=== PATIENT | male | born 1995 | race Caucasian/White ===

== ENCOUNTER 2017-04-05 18:05 | Emergency (ER) | payer OTHER ==
[~2017-04-05] VITALS: Ht 167.6 cm; Wt 88.0 kg
[2017-04-05 18:14] VITALS: BP 137/79; PULSE 60; RESP 16; TEMP 98; O2SAT 100
[2017-04-05] MEDS ORDERED: IBUP800T23 PO (18:27)
--- NOTE | 2017-04-05 18:33 | PD ---
HPI Chief Complaint: Pain: Acute or Chronic Time Seen by Provider: 18:27 Travel History International Travel<30 days: No Contact w/Intl Traveler<30days: No Traveled to known affect area: No History of Present Illness HPI 22-year-old male presents the emergency department with 3 day history of anterior right shoulder discomfort. Patient denies any specific injury, but feels may be due to throwing a football, doing pushups, and playing Carnival games requiring throwing. He denies numbness, tingling, or weakness. Patient has not tried taking any for is worried about a rotator cuff tear. He states the pain is worse with certain movements, and is more aggravating then significantly painful. Positive drive with his hands up on the wheel. He describes the pain as a 4 out of 10. Patient has no known drug allergies. PFSH Past Medical History Integumentary: Yes (Psoriasis ) Tetanus Vaccination: < 5 Years Influenza Vaccination: No Social History Alcohol Use: Yes (Social/occ.) Tobacco Use: No Substance Use: No Allergies-Medications (Allergen,Severity, Reaction): Coded Allergies: No Known Allergies (Unverified , 04/05/17) Reported Meds & Prescriptions Reported Meds & Active Scripts Active Ibuprofen 800 Mg Tab 800 Mg PO Q8H PRN Review of Systems Except as stated in HPI: all other systems reviewed are Neg General / Constitutional: No: Fever Eyes: No: Visual changes HENT: No: Headaches Cardiovascular: No: Chest Pain or Discomfort Respiratory: No: Shortness of Breath Gastrointestinal: No: Abdominal Pain Genitourinary: No: Dysuria Musculoskeletal: No: Pain Skin: No Rash Neurologic: No: Weakness Psychiatric: No: Depression Endocrine: No: Polydipsia Hematologic/Lymphatic: No: Easy Bruising Physical Exam Narrative GENERAL: Patient appears no acute distress. SKIN: Warm and dry. Normal color. Normal turgor. HEAD: Atraumatic. Normocephalic. EYES: Pupils equal and round. No scleral icterus. No injection or drainage. ENT: No nasal bleeding or discharge. Mucous membranes pink and moist. NECK: Trachea midline. No JVD. CARDIOVASCULAR: Regular rate and rhythm. RESPIRATORY: No accessory muscle use. Clear to auscultation. Breath sounds equal bilaterally. MUSCULOSKELETAL: Extremities without clubbing, cyanosis, or edema. No obvious deformities. Patient is mild to moderate tenderness in the anterior deltoid region. Range of motion is full in the right shoulder without specific weakness. He has no tenderness to the cervical spine or trapezius region. NEUROLOGICAL: Awake and alert. No obvious cranial nerve deficits. Motor grossly within normal limits. Five out of 5 muscle strength in the arms and legs. Normal speech. PSYCHIATRIC: Appropriate mood and affect; insight and judgment normal. Data Data Last Documented VS Vital Signs Date Time Temp Pulse Resp B/P Pulse Ox O2 Delivery O2 Flow Rate FiO2 04/05/17 18:14 98.0 60 16 137/79 100 MDM Medical Decision Making Medical Screen Exam Complete: Yes Emergency Medical Condition: Yes Differential Diagnosis Right shoulder pain. Rotator cuff tendinitis. Biceps tendinitis. Narrative Course Patient is medically stable at time of exam. Radiographic imaging is not felt warranted at this time. Patient will take ibuprofen 800 mg 3 times daily with food 10 days. Patient is to use heat and ice and gentle stretching, refrain from heavy use of the right shoulder for the next week. Patient should follow with his primary care physician or return to the ED with worsening or continued symptoms. Diagnosis Primary Impression: Right rotator cuff tendonitis Referrals: Primary Care Physician Patient Instructions: Exercises for Internal and External Shoulder Rotation (ED ), General Instructions, Rotator Cuff Tendinitis (DC) Additional Instructions: Radiographic imaging is not felt warranted at this time. Patient will take ibuprofen 800 mg 3 times daily with food 10 days. Patient is to use heat and ice and gentle stretching, refrain from heavy use of the right shoulder for the next week. Patient should follow with his primary care physician or return to the ED with worsening or continued symptoms. Med/Other Pt SpecificInfo: Prescription(s) given Scripts Ibuprofen 800 Mg Cdy014 Mg PO Q8H PRN (Pain/Inflammation) #30 TAB Prov:Philip Chavez MD 04/05/17 Disposition: 01 DISCHARGE HOME Condition: Stable William Hernandez April 05, 2017 18:33
== END 2017-04-05 18:50 | disposition home or self-care (01) ==
LOC: PHEFT 18:05
DX: M75.81 Other shoulder lesions, right shoulder (principal); Z87.2 Personal history of diseases of the skin and subcutaneous tissue
CPT/HCPCS: 99283